=== PATIENT | male | born 1955 | race Caucasian/White ===

== ENCOUNTER → 2016-09-30 | Outpatient (CLI) | payer MEDICARE | END | disposition home or self-care (01) | LOC: RAD.S 09:04 | DX: R91.8 Other nonspecific abnormal finding of lung field (principal); I25.10 Atherosclerotic heart disease of native coronary artery without angina pectoris ==

== ENCOUNTER 2016-12-01 19:38 | Emergency (ER) | payer MEDICARE ==
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
== END 2016-12-01 20:15 | disposition home or self-care (01) ==
LOC: ER 19:38
DX: S80.02XA Contusion of left knee, initial encounter (principal); S00.01XA Abrasion of scalp, initial encounter; F10.129 Alcohol abuse with intoxication, unspecified; F17.210 Nicotine dependence, cigarettes, uncomplicated; W17.89XA Other fall from one level to another, initial encounter; Y92.009 Unspecified place in unspecified non-institutional (private) residence as the place of occurrence of the external cause